=== PATIENT | male | born 1990 | race Two or more races ===

== ENCOUNTER 2017-05-02 16:33 | Emergency (ER) | payer OTHER ==
[2017-05-02 16:39] VITALS: BP 123/73; PULSE 59; RESP 16; TEMP 98.4; O2SAT 96
--- NOTE | 2017-05-02 16:42 | EDPHY ---
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 No paresthesia. No extensor deficits dysfunction. Tetanus up-to-date. Occurred shortly prior to arrival. PHYSICAL EXAM (Prior to examination, patient consented to physical exam, hands were washed and my usual and customary physical exam procedures followed) 1) GENERAL: Well-developed, well-nourished, alert and oriented. Appears to be in no acute distress. 2) HEAD: Normocephalic 3) HEENT: sclera anicteric 4) LUNGS: Breathing comfortably. 5) SKIN: laceration to the 4th and 5th digit each measuring 1 cm 6) MUSCULOSKELETAL: extensor function independently tested at the 4th and 5th digit no deficits appreciated on exam. Examination of the laceration on the 5th digit reveals a visibly lacerated extensor tendon. 7) NEUROLOGIC: 4th and 5th digit full sensation two-point discrimination intact distally. Smoking Status: Current some day smoker Constitutional: Initial Vital Signs Temperature (C) 36.9 C 05/02/17 16:36 Heart Rate 59 L 05/02/17 16:36 Respiratory Rate 16 05/02/17 16:36 Blood Pressure 123/73 H 05/02/17 16:36 O2 Sat (%) 96 05/02/17 16:36 O2 Delivery Mode Room Air Allergies/Adverse Reactions: No Known Allergies Allergy (Verified 05/02/17 16:36) Home Medications: Medication Instructions Recorded Marijuana Unk Dose 10/07/12 Cephalexin [Keflex] 500 mg PO QID 5 Days 05/02/17 MDM/Departure - MDM Imaging: I viewed and interpreted images myself Procedures: Procedure: Laceration repair. I explained the indications, risks and benefits for both laceration repair and anesthetic administration. Verbal consent was obtained from the patient . The laceration on the 4th and 5th digit was anesthetized using 0.5% bupivicaine without epinephrine digital nerve block. After anesthetic administered the patient was observed for a period of time and had no apparent adverse effects. The wound was cleaned, prepped, draped in normal sterile fashion and explored to its base. No foreign body seen, no foreign bodies palpated. The wound was repaired with 2 simple interrupted 5 O Ethilon sutures to the 4th digit and 4 simple interrupted 5 O Ethilon sutures to the 5th digit . The wound repair was complex. The procedure was performed by myself. Patient has been informed that scarring will occur, although efforts have been made to minimize this. Procedure: Splint A becky-tape and aluminum finger splint was applied by ER iv technician. After application of the splint I returned and re-examined the patient. The splint was adequately immobilizing the joint and distal to the splint the patient's circulation and sensation were intact. Patient shows no signs of compartment syndrome. Was given orthopedic precautions. - Depart Disposition: Home, Routine, Self-Care Clinical Impression: Tendon laceration Laceration of left index finger Qualifiers: Encounter type: initial encounter Damage to nail status: without damage Foreign body presence: without foreign body Qualified Code(s): S61.211A - Laceration without foreign body of left index finger without damage to nail, initial encounter Laceration of finger of left hand Qualifiers: Encounter type: initial encounter Finger: little finger Damage to nail status: without damage Foreign body presence: without foreign body Qualified Code(s): S61.217A - Laceration without foreign body of left little finger without damage to nail, initial encounter Condition: Good Instructions: Tendon Laceration (ED), Finger Laceration (ED) Additional Instructions: Recommend you follow up with a hand surgeon however recommend you contact your work comp provider tomorrow to see if they need to see you in the office 1st. Dr. Jordon Guerrero is a hand surgeon. Prescriptions: Cephalexin [Keflex] 500 mg PO QID 5 Days Referrals: Jordon Guerrero MD [Medical Doctor] - As per Instructions (Dr. Jordon Guerrero is a hand surgeon)
[2017-05-02] MEDS ORDERED: CEPHALEXIN 500 MG CAP PO ONE (17:48)
== END 2017-05-02 18:40 | disposition home or self-care (01) ==
PROC: 0HQGXZZ Repair Left Hand Skin, External Approach (ICD-10-PCS; principal; 2017-05-02)
DX: S61.215A Laceration without foreign body of left ring finger without damage to nail, initial encounter (principal); S61.217A Laceration without foreign body of left little finger without damage to nail, initial encounter; S66.329A Laceration of extensor muscle, fascia and tendon of unspecified finger at wrist and hand level, initial encounter; W26.0XXA Contact with knife, initial encounter; Y92.69 Other specified industrial and construction area as the place of occurrence of the external cause; Y99.0 Civilian activity done for income or pay; F17.200 Nicotine dependence, unspecified, uncomplicated; Y93.89 Activity, other specified

== ENCOUNTER 2017-09-22 20:09 | Emergency (ER) | payer OTHER ==
--- NOTE | 2017-09-22 20:21 | EDPHY ---
H & P Source: Patient, EMS Exam Limitations: No limitations - Personal History Tetanus Vaccine Date: < 10 - Medical/Surgical History Hx Asthma: No Hx Chronic Respiratory Disease: No Hx Diabetes: No Hx Cardiac Disease: No Hx Renal Disease: No Hx Cirrhosis: No Hx Alcoholism: No Hx HIV/AIDS: No Hx Splenectomy or Spleen Trauma: No Other PMH: denies - Family History Significant Family History: No pertinent family hx - Social History Smoking Status: Current some day smoker Alcohol Use: Sober Drug Use: None Time Seen by Provider: 09/22/17 20:09 HPI/ROS: CHIEF COMPLAINT: Bilateral knee pain HISTORY OF PRESENT ILLNESS: Patient is a 27-year-old healthy man who 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 He denies any trauma or twisting or movement. He states that this suddenly felt painful and he could hardly bear his own weight. He felt like they were going to buckle. He denies any back pain he denies any bowel or bladder abnormalities. He denies any weakness or numbness while lying in bed. He states that it is only when he tries to stand up that he has severe pain. He denies history of sickle cell or rheumatic disease. No swelling. No erythema. No fevers. No STD history. REVIEW OF SYSTEMS: Constitutional: denies: chills, fever, recent illness, recent injury EENTM: denies: blurred vision, double vision, nose congestion Respiratory: denies: cough, shortness of breath Cardiac: denies: chest pain, irregular heart rate, lightheadedness, palpitations Gastrointestinal/Abdominal: denies: abdominal pain, diarrhea, nausea, vomiting, blood streaked stools Genitourinary: denies: dysuria, frequency, hematuria, pain Musculoskeletal: See HPI Skin: denies: lesions, rash, jaundice, bruising Neurological: denies: headache, numbness, paresthesia, tingling, dizziness, weakness Hematologic/Lymphatic: denies: blood clots, easy bleeding, easy bruising Immunologic/allergic: denies: HIV/AIDS, transplant EXAM: GENERAL: Well-appearing, well-nourished and in no acute distress. HEAD: Atraumatic, normocephalic. EYES: Pupils equal round and reactive to light, extraocular movements intact, sclera anicteric, conjunctiva are normal. ENT: TMs normal, nares patent, oropharynx clear without exudates. Moist mucous membranes. NECK: Normal range of motion, supple without lymphadenopathy or JVD. LUNGS: Breath sounds clear to auscultation bilaterally and equal. No wheezes rales or rhonchi. HEART: Regular rate and rhythm without murmurs, rubs or gallops. ABDOMEN: Soft, nontender, normoactive bowel sounds. No guarding, no rebound. No masses appreciated. BACK: No CVA tenderness, no spinal tenderness, step-offs or deformities EXTREMITIES: Normal range of motion while lying in bed, no pitting or edema. No clubbing or cyanosis. No swelling. No erythema. Slight laxity with posterior drawer but equal bilaterally. Normal strength in legs. I did have him ambulate and he would reach out to the wall to keep himself from falling and seem to be in pain but no obvious gait deformity. No hip pain. NEUROLOGICAL: Cranial nerves II through XII grossly intact. Normal speech. 5/ 5 strength, normal movement in all extremities, normal sensation PSYCH: Normal mood, normal affect. SKIN: Warm, dry, normal turgor, no visible rashes or lesions. (Milan Roland) Constitutional: Initial Vital Signs Heart Rate 80 09/22/17 20:19 Respiratory Rate 18 09/22/17 20: Blood Pressure 133/86 H 09/22/17 20: O2 Sat (%) 93 09/22/17 20: O2 Delivery Mode Room Air O2 (L/minute) 2 Allergies/Adverse Reactions: No Known Allergies Allergy (Verified 05/02/17 16:36) Home Medications: Medication Instructions Recorded Marijuana Unk Dose 10/07/12 Hydrocodone/Acetaminophen 1 - 2 each PO Q4-6PRN PRN #10 09/23/17 [Hydrocodon-Acetaminophen 5-325] tablet Medical Decision Making - Diagnostics Imaging: Discussed imaging studies w/ call worker person Radiologist ED Course/Re-evaluation: We discussed the x-ray results. The patient is relieved. I will discharge him and encouraged rest and follow up with Orthopedics. He understands and agrees with this plan. We discussed indications for returning. He was wrapped with Donaldo bandages over both knees. I tried to have the patient ambulate. He persists in feeling very wobbly and falling down and complaining of severe pain when he bears weight. He continues to deny any trauma. No obvious signs of trauma. I will order an MRI of both knees. Care transferred to Dr. Danelle Varela. (Milan Roland) Differential Diagnosis: Partial list of the Differential diagnosis considered include but were not limited to; meniscus injury, tendon injury and although unlikely based on the history and physical exam, I also considered fracture, vascular injury, affection, gout, rheumatologic disease, sickle cell, gonorrhea. I discussed these differential diagnoses and the plan with the patient as well as the usual and expected course. The patient understands that the diagnosis is provisional and that in medicine we are not always correct and that further workup is often warranted. Usual and customary warnings were given. All of the patient's questions were answered. The patient was instructed to return to the emergency department should the symptoms at all worsen or return, otherwise to followup with the physician as we discussed. (Milan Roland) Other Provider: 2300 care assumed by me pending MRIs of the knees. 0200 MRI a bilateral knee results are noted. Patient has been lateral anterior tibial contusions with PCL injuries in the collateral injury as well. These are consistent with a direct blow such as a fall on his knees or dashboard injury. I have discussed at length with the patient. He is adamant that he did not sustain any direct injuries. He states he only took a small jump will going down the elevator. I do not have an explanation for the extensive his injuries given the mechanism that he is describing. Patient has been placed in knee brace is and discharged with follow up with Orthopedics. ( Hunter Amato) - Data Points Laboratory Results: Laboratory Results 09/22/17 20:30 09/22/17 20:30 Medications Given: Discontinued Medications Ibuprofen (Motrin) 600 mg PO EDNOW ONE Stop: 09/22/17 21:15 Last Admin: 09/22/17 21:19 Dose: 600 mg Departure - Departure Disposition: Home, Routine, Self-Care Clinical Impression: Contusion of both tibias Injury of posterior cruciate ligament Qualifiers: Encounter type: initial encounter Laterality: unspecified laterality Qualified Code(s): S89.90XA - Unspecified injury of unspecified lower leg, initial encounter Condition: Good Instructions: Hydrocodone/Acetaminophen (By mouth), Posterior Cruciate Ligament Injury (ED), Knee Immobilizer (ED) Additional Instructions: Follow up with orthopedist in 3-4 days for further care. Referrals: Patient,NotPresent [Unknown] - As per Instructions Jordon Guerrero MD [Medical Doctor] - As per Instructions Stand Alone Forms: Work Excuse Prescriptions: Hydrocodone/Acetaminophen [Hydrocodon-Acetaminophen 5-325] 1 - 2 each PO Q4- 6PRN PRN #10 tablet PRN Reason: Pain, Severe
[2017-09-22] MEDS ORDERED: IBUPROFEN 600 MG TAB PO ONE (21:14)
[2017-09-22 21:36] LABS: PLATELET COUNT 332 10^3/uL (150-400)
[2017-09-22 23:02] VITALS: RESP 16; O2SAT 96
[2017-09-23 01:21] VITALS: BP 132/88; PULSE 88
== END 2017-09-23 01:19 | disposition home or self-care (01) ==
LOC: EDUNIT#
DX: S80.11XA Contusion of right lower leg, initial encounter (principal); S80.12XA Contusion of left lower leg, initial encounter; F17.200 Nicotine dependence, unspecified, uncomplicated; X58.XXXA Exposure to other specified factors, initial encounter; Y99.8 Other external cause status
CPT/HCPCS: L1830

== ENCOUNTER 2017-10-01 16:57 | Emergency (ER) | payer OTHER ==
--- NOTE | 2017-10-01 17:26 | EDPHY ---
H & P Stated Complaint: Sent for eval +DVT L leg;bilat knee injuries~1wk ago (seen here) Time Seen by Provider: 10/01/17 17:26 HPI/ROS: CHIEF COMPLAINT: Newly diagnosed DVT HISTORY OF PRESENT ILLNESS: The patient was seen in the emergency department a little over 1 week ago with a curious injury of a bilateral PCL tear which reportedly developed while working at work. The patient was placed in bilateral knee immobilizers. He has been on crutches since that time. He followed up with the orthopedic surgeon today and he reported left calf pain. He was sent to the ED for an ultrasound which demonstrates to discrete clots in the left posterior tibial veins. He denies chest pain or shortness of breath. REVIEW OF SYSTEMS: A comprehensive 10 point review of systems is otherwise negative aside from elements mentioned in the history of present illness. Source: Patient Exam Limitations: No limitations - Personal History Current Tetanus Diphtheria and Acellular Pertussis (TDAP): Yes Tetanus Vaccine Date: < 10 - Medical/Surgical History Hx Asthma: No Hx Chronic Respiratory Disease: No Hx Diabetes: No Hx Cardiac Disease: No Hx Renal Disease: No Hx Cirrhosis: No Hx Alcoholism: No Hx HIV/AIDS: No Hx Splenectomy or Spleen Trauma: No Other PMH: denies - Social History Smoking Status: Current some day smoker - Physical Exam Exam: General Appearance: Alert, no distress Eyes: Pupils equal and round no pallor or injection ENT, Mouth: Mucous membranes moist Respiratory: There are no retractions, lungs are clear to auscultation Cardiovascular: Regular rate and rhythm Gastrointestinal: Abdomen is soft and nontender, no masses, bowel sounds normal Neurological: Grossly normal motor exam, unable to fully assess motor exam lower extremity secondary to the presence of knee immobilizers. Skin: Warm and dry, no rashes Musculoskeletal: The patient is an bilateral hinged knee immobilizers, mild left calf tenderness Extremities: symmetrical, full range of motion Constitutional: Initial Vital Signs Temperature (C) 36.7 C 10/01/17 17:05 Heart Rate 84 10/01/17 17:05 Respiratory Rate 18 10/01/17 17:05 Blood Pressure 129/92 H 10/01/17 17:05 O2 Sat (%) 97 10/01/17 17:05 Allergies/Adverse Reactions: No Known Allergies Allergy (Verified 10/01/17 17:04) Home Medications: Medication Instructions Recorded Rivaroxaban [Xarelto 15mg (*)] 15 mg PO BID #42 tab 10/01/17 oxyCODONE/APAP 5/325 [Percocet 1 - 2 tab PO Q6-8PRN PRN #20 tab 10/01/17 5/325 (RX)] Medical Decision Making - Diagnostics Imaging Results: Imaging Impressions Extremity Venous Study 10/01/17 15:15 Impression: 1. Focal thrombus within the left calf involving one of the 2 paired posterior tibial veins for length of about 4 cm. No evidence of additional venous thrombosis seen left lower extremity. 2. No evidence of DVT right lower extremity. Findings discussed with Kirby Abdul MD at 16:37 hour, 10/01/2017. Imaging: Discussed imaging studies w/ suspender maker Radiologist ED Course/Re-evaluation: The patient presents to the ED with a tibial vein DVT in the left leg. He has no clinical evidence of a pulmonary embolism. I did discuss this with the [facility] department and they are willing to see the patient tomorrow in follow-up. They are recommended the patient be started on Xarelto. The patient will be provided an additional prescription for pain medications. He is advised to continue ambulation with crutches. He should follow up with Dr. Abdul from Orthopedic surgery as scheduled. Differential Diagnosis: Differential diagnosis considered includes DVT, arterial insufficiency, metabolic abnormality Departure - Departure Disposition: Home, Routine, Self-Care Clinical Impression: DVT (deep venous thrombosis) Qualifiers: DVT location: lower extremity Affected thrombotic vein of extremity: tibial Chronicity: acute Laterality: left Qualified Code(s): I82.442 - Acute embolism and thrombosis of left tibial vein Condition: Good Instructions: Deep Vein Thrombosis (ED) Additional Instructions: 1. Begin Xarelto as directed for anticoagulation. 2. Please contact [facility] tomorrow morning at [phone]. Please let them know that you were seen in the ER and that the [place] physician wanted you to be seen tomorrow for a new patient visit for further care for your blood clot. 3. Percocet as needed for pain. Referrals: GENESIS NEAL [Medical Doctor] - As per Instructions Prescriptions: oxyCODONE/APAP 5/325 [Percocet 5/325 (RX)] 1 - 2 tab PO Q6-8PRN PRN #20 tab PRN Reason: for pain Rivaroxaban [Xarelto 15mg (*)] 15 mg PO BID #42 tab
[2017-10-01 18:33] VITALS: BP 120/87; PULSE 76; RESP 20; TEMP 99; O2SAT 96
== END 2017-10-01 18:32 | disposition home or self-care (01) ==
DX: I82.442 Acute embolism and thrombosis of left tibial vein (principal); F17.200 Nicotine dependence, unspecified, uncomplicated